=== PATIENT | male | born 1945 | race Caucasian/White ===

== ENCOUNTER 2018-10-05 00:25 | Emergency (ER) | payer MEDICARE, OTHER ==
[2018-10-05] MEDS ORDERED: Lidocaine 1% w/Epinephrine 1:100K 20 ML VIAL ONE (01:00)
--- NOTE | 2018-10-05 07:57 | RAD ---
EXAM: Two views chest PROVIDED CLINICAL HISTORY: Pain COMPARISON: None FINDINGS: Cardiac and mediastinal silhouette appears within normal limits. Lungs appear free of significant opa city. No pleural fluid or pneumothorax apparent. IMPRESSION: No evidence for an acute cardiopulmonary process.
== END 2018-10-05 01:35 | disposition home or self-care (01) ==
LOC: ERS 00:25
DX: L02.212 Cutaneous abscess of back [any part, except buttock and flank] (principal)
CPT/HCPCS: 10060; 71046; J2001

== ENCOUNTER 2024-11-18 13:04 | Outpatient (CLI) | payer MEDICARE, OTHER | END 2024-11-18 13:05 | disposition home or self-care (01) | LOC: ULT 13:04 | PROVIDERS: ATTEND Family Medicine | DX: R79.89 Other specified abnormal findings of blood chemistry (principal); E04.2 Nontoxic multinodular goiter; E04.1 Nontoxic single thyroid nodule | CPT/HCPCS: 76536 ==